=== PATIENT | male | born 1975 | race Caucasian/White ===

== ENCOUNTER 2017-11-09 13:03 | Emergency (ER) | END 2017-11-09 15:43 | disposition home or self-care (01) ==

== ENCOUNTER 2017-11-11 15:12 | Emergency (ER) | END 2017-11-11 17:36 | disposition home or self-care (01) ==

== ENCOUNTER 2018-11-20 01:05 | Emergency (ER) | payer MEDICAID, OTHER ==
[~2018-11-20] VITALS: Wt 92.9 kg
[~2018-11-20 01:05] MED LIST: ACET325T33 PO; AMLO-147 PO; PANT20TA2 PO; POLY17PO6 PO; RANI150T35 PO; TRAM50TA2 PO
[2018-11-20] MEDS ORDERED: HYDROCODONE/APAP (5/325) TAB PO ONE ×2 (02:00→03:00)
[2018-11-20] MEDS ORDERED: HYDR-4011 PO (02:31)
[2018-11-20 02:56] VITALS: BP 167/111; PULSE 78; RESP 18
--- NOTE | 2018-11-20 21:15 | ERD ---
ER Documentation Chief Complaint Chief Complaint FACIAL PAIN, L SIDE JAW PAIN S/P DENTAL PROCEDURE YESTERDAY HPI 43 yo M presents to the ED complaining of left upper dental pain status post dental deep cleaning procedure at the dentist yesterday. He was started on Amoxicillin and Tylenol with Codeine without any relief. States cold water "is the only thing that help." Has an appointment for the oral surgeon next month. He is requesting stronger pain medications. Denies any associated fevers, chills, facial swelling, difficulty swallowing, drooling, neck stiffness/pain. No dental trauma. ROS All systems reviewed and are negative except as per history of present illness. Medications Home Meds Active Scripts Hydrocodone/Acetaminophen ([place] 5-325 Tablet) 1 Each Tablet, 1 TAB PO Q6H PRN for PAIN, #7 TAB Prov:YASMANI BAUMANN PA-C 11/20/18 Polyethylene Glycol* (Miralax*) 17 Gm Powd.pack, 17 GM PO DAILY, #7 Prov:SOFI HERNANDEZ MD 11/11/17 Tramadol HCl (Tramadol HCl) 50 Mg Tablet, 50 MG PO Q6 PRN for PAIN, #15 TAB Prov:SOFI HERNANDEZ MD 11/11/17 Pantoprazole* (Protonix*) 20 Mg Tablet.dr, 20 MG PO BID for 7 Days, TAB Prov:SOFI HENRANDEZ MD 11/11/17 Amlodipine Besylate* (Amlodipine Besylate*) 10 Mg Tablet, 10 MG PO DAILY, #30 TAB Prov:JOSE ANTONIO MCELROY MD 11/09/17 Acetaminophen* (Tylenol*) 325 Mg Tablet, 1 TAB PO Q6 PRN for PAIN AND OR ELEVATED TEMP, #20 TAB Prov:JOSE ANTONIO MCELROY MD 11/09/17 Ranitidine Hcl* (Zantac*) 150 Mg Tablet, 7 MG PO BID PRN for EPIGASTRIC PAIN, #15 TAB Prov:JOSE ANTONIO MCELROY MD 11/09/17 Allergies Allergies: Coded Allergies: No Known Allergy (Unverified , 11/09/17) PMhx/Soc History of Surgery: Yes (LEFT KNEE ) Anesthesia Reaction: No Hx Neurological Disorder: No Hx Respiratory Disorders: No Hx Cardiac Disorders: No Hx Psychiatric Problems: No Hx Miscellaneous Medical Probl: No Hx Alcohol Use: No Hx Substance Use: No Hx Tobacco Use: No Smoking Status: Never smoker Physical Exam Vitals Vital Signs Date Temp Pulse Resp B/P (MAP) Pulse Ox O2 O2 Flow FiO2 Time Delivery Rate 11/20/18 98.0 78 18 167/111 98 Room Air 02:56 (129) 11/20/18 97.6 81 18 182/113 99 01:10 (136) Physical Exam Const: No acute distress Head: Atraumatic. No facial swelling. Eyes: Normal Conjunctiva. EOMI. PERRL. ENT: Normal External Ears, Nose and Mouth. +Dental caries, tenderness to percussion of tooth #14, no surrounding erythema, induration or fluctuance. No trismus. Sublingual spaces clear. Neck: Full range of motion. No meningismus. Resp: Clear to auscultation bilaterally Cardio: Regular rate and rhythm, no murmurs Neur: Awake and alert Psych: Normal Mood and Affect Results 24 hrs Current Medications Medications Dose Sig/Rl Start Time Status Last (Trade) Ordered Route PRN Stop Time Admin Dose Reason Admin 1 tab ONCE ONCE 11/20/18 DC 11/20/18 Acetaminophen PO 02:00 02:01 / 11/20/18 02:01 Hydrocodone Bitart ([place] (5/325)) 1 tab ONCE ONCE 11/20/18 DC 11/20/18 Acetaminophen PO 03:00 02:55 / 11/20/18 03:00 Hydrocodone Bitart ([place] (5/325)) Procedures/MDM 43 year old M presents with dental pain status post dental procedure yesterday. History and physical not consistent with abscess, attila's angina or any other deep space tissue infection. He is afebrile here and vital signs are normal. Advanced imaging not indicated at this time. CURES database consulted and confirms no history of narcotic use or abuse. Was given a dose of [place] here and d/c'd home with a short rx for same. Discussed w/ him that he must follow up with his dentist/orofacial surgeon for further management and evaluation of his pain. Strict return precautions given. Patient's blood pressure was elevated (>120/80) but appears stable without evidence of hypertension emergency or urgency. The patient was counseled about the risks of hypertension and urged to pursue outpatient monitoring and therapy within a week with their primary care physician Departure Diagnosis: Primary Impression: Toothache Condition: Stable Patient Instructions: Dental Pain Referrals: [facility] ([facility]) Additional Instructions: Please see the dentist if you continue to have worsening pain. I am providing a short course of [place] which she can take for any worsening pain, do not drink or drive on this medication. Return for any new or worsening symptoms. YASMANI BAUMANN PA-C November 20, 2018 21:14
== END 2018-11-20 02:57 | disposition home or self-care (01) ==
LOC: FTE 01:05
DX: K08.89 Other specified disorders of teeth and supporting structures (principal)
CPT/HCPCS: 99283